=== PATIENT | female | born 1940 | race Hispanic/Latino ===

== ENCOUNTER → 2018-06-05 | Outpatient (CLI) | payer OTHER, MEDICARE ==
[2018-06-05 08:43] LABS: ALBUMIN 3.6 g/dL (3.5-5.0); BILIRUBIN,TOTAL 0.4 mg/dL (0.2-1.0); CREATININE 0.9 mg/dL (0.5-1.5); POTASSIUM 4.7 mmol/L (3.5-5.1); TOTAL PROTEIN, SERUM 7.7 g/dL (6.0-8.3)
== END | disposition home or self-care (01) ==
LOC: LAB 07:54
PROVIDERS: ATTEND Family Medicine
DX: H81.10 Benign paroxysmal vertigo, unspecified ear (principal)
CPT/HCPCS: 36415; 80053

== ENCOUNTER 2018-06-07 16:37 | Emergency (ER) | payer OTHER, MEDICARE ==
[2018-06-07 17:11] LABS: BASOPHILS % (AUTO) 0.5 % (0.0-5.0); EOSINOPHILS % (AUTO) 1.1 % (0.0-8.0); HEMATOCRIT 40.5 % (36-48); LYMPHOCYTES % (AUTO) 17.8 % (21.0-51.0); MEAN CORPUSCULAR HEMOGLOBIN 30.1 pg (27.0-33.0); MEAN CORPUSCULAR HGB CONC 34.3 g/dL (32.0-36.0); MEAN CORPUSCULAR VOLUME 87.9 fL (79-99); MONOCYTES % (AUTO) 7.9 % (3.0-13.0); NEUTROPHILS % (AUTO) 72.7 % (40.0-77.0); NUCLEATED RED BLOOD CELLS 0.1 % (0.0-0.19); PLATELET COUNT (AUTO) 231 K/uL (130-400); RED BLOOD CELL COUNT(AUTO) 4.61 MIL/uL (4.00-5.50); WHITE BLOOD COUNT (AUTO) 13.8 K/uL (4.8-10.8)
[2018-06-07 17:23] LABS: POTASSIUM 4.5 mmol/L (3.5-5.1)
[2018-06-07 17:27] LABS: ALBUMIN 3.7 g/dL (3.5-5.0); BILIRUBIN,TOTAL 0.4 mg/dL (0.2-1.0); TOTAL PROTEIN, SERUM 7.9 g/dL (6.0-8.3)
[2018-06-07] MEDS ORDERED: CYCLOBENZAPRINE HCL 10 MG TABLET ONE (17:48)
[2018-06-07] MEDS ORDERED: TRAMADOL HCL 50 MG TABLET ONE (17:49)
[2018-06-07 17:57] LABS: INR 0.93 (0.85-1.15); PARTIAL THROMBOPLASTIN TIME 26.4 SEC (26.3-35.5); PROTHROMBIN TIME 9.8 SEC (9.6-11.6)
[2018-06-07 18:21] LABS: APPEARANCE,URINE CLEAR (CLEAR); BILIRUBIN,URINE NEGATIVE (NEGATIVE); GLUCOSE, URINE (UA) 100 mg/dL (NEGATIVE); KETONES,URINE NEGATIVE (NEGATIVE); LEUKOCYTE ESTERASE ,URINE NEGATIVE (NEGATIVE); NITRATE,URINE NEGATIVE (NEGATIVE); OCCULT BLOOD,URINE NEGATIVE (NEGATIVE); PROTEIN,URINE NEGATIVE (NEGATIVE); UROBILINOGEN,URINE 0.2 mg/dL (0.2-1.0)
[2018-06-07 18:25] LABS: COLOR,URINE Straw (YELLOW)
[2018-06-07 19:00] LABS: BACTERIA,URINE Rare /HPF (None Seen); RBC,URINE None Seen /HPF (0-1); WBC,URINE 0-1 /HPF (0-1)
[2018-06-07 19:01] LABS: SQUAMOUS EPITHELIAL CELL,UR None Seen /HPF (0-2)
== END 2018-06-07 18:51 | disposition home or self-care (01) ==
LOC: EDH 16:37
DX: M62.838 Other muscle spasm (principal); M54.2 Cervicalgia; R42 Dizziness and giddiness; E11.9 Type 2 diabetes mellitus without complications; I10 Essential (primary) hypertension; E78.5 Hyperlipidemia, unspecified; E07.9 Disorder of thyroid, unspecified; Z90.710 Acquired absence of both cervix and uterus; Z98.890 Other specified postprocedural states
CPT/HCPCS: 36415; 70450; 72125; 80053; 81001; 82550; 84484; 85025; 85610; 85730; 93005

== ENCOUNTER → 2019-06-26 | Outpatient (CLI) | payer OTHER, MEDICARE | END | disposition home or self-care (01) | LOC: RAH 10:23 | PROVIDERS: ATTEND Internal Medicine Gastroenterology | DX: K31.84 Gastroparesis (principal) | CPT/HCPCS: 78264; A9541 ==

== ENCOUNTER 2023-06-28 09:24 | Emergency (ER) | payer OTHER, MEDICARE ==
[~2023-06-28] VITALS: Ht 160 cm; Wt 59.9 kg
[2023-06-28 09:48] LABS: BASOPHILS # (AUTO) 0.04 K/uL (0.00-0.20); BASOPHILS % (AUTO) 0.4 % (0.0-5.0); EOSINOPHILS % (AUTO) 1.1 % (0.0-8.0); HEMATOCRIT 44.8 % (36-48); IMMATURE GRANULOCYTE ABSOLUTE 0.02 K/uL (0-1); LYMPHOCYTES # (AUTO) 3.9 K/uL (1.0-4.8); LYMPHOCYTES % (AUTO) 42.4 % (21.0-51.0); MEAN CORPUSCULAR HEMOGLOBIN 29.5 pg (27.0-33.0); MEAN CORPUSCULAR HGB CONC 34.2 g/dL (32.0-36.0); MEAN CORPUSCULAR VOLUME 86.5 fL (79-99); MONOCYTES # (AUTO) 0.6 K/uL (0.1-1.0); MONOCYTES % (AUTO) 6.5 % (3.0-13.0); NEUTROPHILS # (AUTO) 4.6 K/uL (1.8-7.7); NEUTROPHILS % (AUTO) 49.4 % (40.0-77.0); PLATELET COUNT (AUTO) 330 K/uL (130-400); RED BLOOD CELL COUNT(AUTO) 5.18 MIL/uL (4.00-5.50); RED CELL DISTRIBUTION WIDTH 15.7 % (11.0-15.5); WHITE BLOOD COUNT (AUTO) 9.3 K/uL (4.8-10.8)
[2023-06-28 09:54] LABS: ABG BASE EXCESS 3.1 mmol/L (-2.0-3.0); ABG HCO3 27.2 mmol/L (21.0-28.0); ABG OXYGEN SATURATION 96.1 % (95.0-99.0); ABG PCO2 40 mmHg (32-45); ABG PH 7.453 (7.35-7.450); DEVICE COMMENT RR RA; PO2, ARTERIAL BG 78.3 mmHg (83.0-108.0); VENT MODE, BG RA (ROOM AIR)
[2023-06-28 10:03] LABS: CREATININE 1.2 mg/dL (0.5-1.5); POTASSIUM 3.4 mmol/L (3.5-5.1)
[2023-06-28 10:07] LABS: ALBUMIN 3.5 g/dL (3.5-5.0); BILIRUBIN,TOTAL 0.5 mg/dL (0.2-1.0); TOTAL PROTEIN, SERUM 8.1 g/dL (6.0-8.3)
[2023-06-28] MEDS ORDERED: 0.9% NACL 500ML IV.SOLN 500 ML IV ONE (10:30)
[2023-06-28] MEDS ORDERED: INSULIN HUMULIN R 100 UNIT/ML 3ML IV ONE (10:30)
[2023-06-28 10:51] LABS: APPEARANCE,URINE CLEAR (CLEAR); BILIRUBIN,URINE NEGATIVE (NEGATIVE); COLOR,URINE LIGHT-YELLOW (YELLOW); GLUCOSE, URINE (UA) >=1000 mg/dL (NEGATIVE); KETONES,URINE NEGATIVE (NEGATIVE); LEUKOCYTE ESTERASE ,URINE 25 Leu/uL (NEGATIVE); NITRATE,URINE NEGATIVE (NEGATIVE); OCCULT BLOOD,URINE NEGATIVE (NEGATIVE); PROTEIN,URINE NEGATIVE (NEGATIVE); UROBILINOGEN,URINE 0.2 mg/dL (0.2-1.0)
[2023-06-28 10:52] LABS: ADD UA MICROSCOPIC YES
[2023-06-28 10:55] LABS: MUCUS,URINE RARE LPF (None Seen); RBC,URINE 0-1 /HPF (0-1); SQUAMOUS EPITHELIAL CELL,UR RARE /HPF (0-2); WBC,URINE 0-1 /HPF (0-1)
[2023-06-28] MEDS ORDERED: CEFTRIAXONE 1G VIAL IVPB ONE (12:00)
[2023-06-28 12:17] VITALS: BP 126/69; PULSE 93; RESP 18; O2SAT 99
[2023-06-28] MEDS ORDERED: BENZ200C53 PO (12:37)
== END 2023-06-28 12:46 | disposition home or self-care (01) ==
LOC: EDH 09:24
DX: E11.65 Type 2 diabetes mellitus with hyperglycemia (principal); E03.9 Hypothyroidism, unspecified; E78.00 Pure hypercholesterolemia, unspecified; I10 Essential (primary) hypertension; K21.9 Gastro-esophageal reflux disease without esophagitis; M19.90 Unspecified osteoarthritis, unspecified site; Z90.49 Acquired absence of other specified parts of digestive tract
CPT/HCPCS: 99285; 96374; 70450; 96375; 84484; 80053; 82803; 83690; 85025; 82948; 83605; 82010; 81001; 36415; 93005; 36600; J1815; J7040; J0696

== ENCOUNTER 2023-10-18 12:02 | Emergency (ER) | payer OTHER, MEDICARE ==
[~2023-10-18] VITALS: Ht 167.6 cm; Wt 74.8 kg
[~2023-10-18 12:02] MED LIST: BENZ200C53 PO
[2023-10-18 12:04] VITALS: BP 186/82; PULSE 93; RESP 16
[2023-10-18 13:34] LABS: MEAN CORPUSCULAR HEMOGLOBIN 30.3 pg (27.0-33.0); MEAN CORPUSCULAR HGB CONC 32.8 g/dL (32.0-36.0); MEAN CORPUSCULAR VOLUME 92.3 fL (79-99); RED BLOOD CELL COUNT(AUTO) 4.66 MIL/uL (4.00-5.50); RED CELL DISTRIBUTION WIDTH 13.4 % (11.0-15.5); WHITE BLOOD COUNT (AUTO) 11.4 K/uL (4.8-10.8)
[2023-10-18 13:44] LABS: INR <= 0.93 (0.85-1.15); PROTHROMBIN TIME 10.9 SEC (9.6-11.6)
[2023-10-18 13:45] LABS: PARTIAL THROMBOPLASTIN TIME 26.9 SEC (26.3-35.5)
[2023-10-18 13:47] LABS: CREATININE 0.8 mg/dL (0.5-1.0); POTASSIUM 4.2 mmol/L (3.5-5.1)
[2023-10-18 13:51] LABS: ALBUMIN 3.4 g/dL (3.5-5.0); BILIRUBIN,TOTAL 0.4 mg/dL (0.2-1.0); MAGNESIUM 1.9 mg/dL (1.80-2.40); TOTAL PROTEIN, SERUM 7.4 g/dL (6.0-8.3)
[2023-10-18] MEDS: KETOROLAC 15MG/ML VIAL (15MG/ML) IV ONE (13:59)
== END 2023-10-18 15:20 | disposition home or self-care (01) ==
LOC: EDH 12:02
DX: S00.01XA Abrasion of scalp, initial encounter (principal); I10 Essential (primary) hypertension; E11.9 Type 2 diabetes mellitus without complications; E03.9 Hypothyroidism, unspecified; E78.00 Pure hypercholesterolemia, unspecified; D69.6 Thrombocytopenia, unspecified; K21.9 Gastro-esophageal reflux disease without esophagitis; Z90.710 Acquired absence of both cervix and uterus; Z98.890 Other specified postprocedural states; W18.39XA Other fall on same level, initial encounter; Y93.01 Activity, walking, marching and hiking; Y92.830 Public park as the place of occurrence of the external cause; Y99.8 Other external cause status
CPT/HCPCS: 99285; 70450; 96374; 83735; 84484; 80053; 85027; 85610; 85730; 36415; 72125; 93005; J1885

== ENCOUNTER 2024-12-15 11:26 | Emergency (ER) | payer MEDICARE ==
[~2024-12-15] VITALS: Ht 162.6 cm; Wt 59.0 kg
--- NOTE | 2024-12-15 11:34 | ERN ---
General Chief Complaint: Headache Stated Complaint: VIRAMONTES,HX OF HTN,LT EYE PRESSURE Time Seen by MD: 11:27 History of Present Illness Initial Comments 84-year-old female who presents for left headache and left eye pain for the last three days. Patient reports for the last three days she has been having pain to the left eye and in the orbit area. She reports that her eye is watering. No vision changes. No vomiting. No fevers. No neurologic symptoms. She reports he has never had this before. She denies trauma. She reports medical history of hypertension, she reports that she has not been taking her blood pressure medications. She was brought in by EMS from an adult daycare center with stable vital signs. VAN neg. Allergies: Coded Allergies: No Known Drug Allergies (Unverified Allergy, Unknown, 06/28/23) Home Meds Active Scripts Benzonatate (Benzonatate) 200 Mg Capsule, 200 MG PO TID PRN for COUGH for 14 Days, #42 CAP Prov:ROGERNICK PALMER 06/28/23 Past Medical History Past Medical History: Arthritis, Diabetes-Type II, GERD, High Cholesterol, Hypertension, Hypothyroid Past Surgical History: Hysterectomy, Other, BTL Social History Social History: Negative ROS Dictation CONSTITUTIONAL: No chills, no fever, no weakness, no diaphoresis, no malaise. HEAD/FACE: No signs of trauma. EENT: Left eye pain and headache RESPIRATORY: No cough, no orthopnea, no SOB, no stridor, no wheezing. CARDIOVASCULAR: No chest pain, no edema, no palpitations, no syncope. GASTROINTESTINAL/ABDOMINAL: No abdominal pain, no constipation, no diarrhea, no nausea, no vomiting. GENITOURINARY: No abnormal discharge, no dysuria, no frequent urination, no hematuria. No complaints of pain in the genitals. MUSCULOSKELETAL: No back pain, no gout, no joint pain, no joint swelling, no muscle pain, no muscle stiffness, no neck pain. INTEGUMENTARY: No change in color, no change in hair/nails, no dryness, no lesion, no lumps, no rash. NEUROLOGICAL/PSYCH: No anxiety, not depressed, no emotional problem, no numbn ess, no pre-existing deficit, no history of seizures, no tremors, no weakness. HEMATOLOGIC/LYMPHATIC: Not anemic, no history of blood clots, no apparent bleeding, no bruising, glands not swollen. All Systems Negative, Except as Noted. Physical Exam Physical Exam Dictation VITAL SIGNS: Reviewed. GENERAL APPEARANCE: Alert, oriented x3, no acute distress. HEAD AND FACE: Non-traumatic. EYES: PERRL, pink conjunctivas, eyelid no trauma, anterior chamber clear. EARS: Pinnas intact and no signs of trauma or erythema. Ear canals clear and no discharge. TMs no erythema. NOSE: No discharge, no bleeding. OROPHARYNX: Mouth normal, teeth no caries, tongue pink. Pharynx clear, no erythema. Tonsils no exudates, no abscesses noted. Mucous membrane moist. NECK: Supple, non-tender, no thyromegaly, no masses, no JVD, no bruits. BREAST: Deferred. CHEST: No tenderness, no crepitus, no paradoxical movement, no retractions. LUNGS: Clear, well-ventilated, symmetric, no rales, no wheezing, no rhonchi, no stridor, good breath sounds bilaterally. HEART: Regular rate, regular rhythm, no murmur, no gallops. VASCULAR: No peripheral edema. ABDOMEN: Soft, positive bowel sounds, nondistended, no guarding, nontender, no rebound, no masses no hepatomegaly, no splenomegaly, no Beckwith's sign, no hernias. RECTAL: Deferred. GENITAL: Deferred. NEUROLOGICAL: Normal speech, gross motor function intact, gross sensory function intact. MUSCULOSKELETAL: Neck nontender, full range of motion, back nontender, full range of motion. EXTREMITIES: Nontender, full range of motion. SKIN: Color pink, dry, no turgor, no rash, no lacerations, no abrasions, no contusions. LYMPHATICS: Deferred. Results Laboratory and Microbiology Lab and Micro Result Laboratory Tests Test 12/15/24 11:45 12/15/24 12:07 White Blood Count 12.8 K/uL (4.8-10.8) H Red Blood Count 4.76 MIL/uL (4.00-5.50) Hemoglobin 14.4 g/dL (12.0-16.0) Hematocrit 43.4 % (36-48) Mean Corpuscular Volume 91.2 fL (79-99) Mean Corpuscular Hemoglobin 30.3 pg (27.0-33.0) Mean Corpuscular Hemoglobin Concent 33.2 g/dL (32.0-36.0) Red Cell Distribution Width 13.9 % (11.0-15.5) Platelet Count 254 K/uL (130-400) Mean Platelet Volume 10.2 fL (7.5-10.5) Immature Granulocyte % (Auto) 0.4 % (0-1) Neutrophils (%) (Auto) 62.0 % (40.0-77.0) Lymphocytes (%) (Auto) 30.8 % (21.0-51.0) Monocytes (%) (Auto) 6.3 % (3.0-13.0) Eosinophils (%) (Auto) 0.2 % (0.0-8.0) Basophils (%) (Auto) 0.3 % (0.0-5.0) Neutrophils # (Auto) 7.9 K/uL (1.8-7.7) H Lymphocytes # (Auto) 3.9 K/uL (1.0-4.8) Monocytes # (Auto) 0.8 K/uL (0.1-1.0) Eosinophils # (Auto) 0.03 K/uL (0.00-0.70) Basophils # (Auto) 0.04 K/uL (0.00-0.20) Absolute Immature Granulocyte (auto 0.05 K/uL (0-1) Nucleated Red Blood Cells 0.0 % (0.0-0.19) Sodium Level 143 mmol/L (136-145) Potassium Level 4.3 mmol/L (3.5-5.1) Chloride Level 106 mmol/L (101-111) Carbon Dioxide Level 29 mmol/L (21-32) Blood Urea Nitrogen 18 mg/dL (7-18) Creatinine 0.7 mg/dL (0.5-1.0) Glomerular Filtration Rate Calc 85 mL/min (>90) Random Glucose 151 mg/dL (70-105) H Total Calcium 9.2 mg/dL (8.5-10.1) Magnesium Level 2.20 mg/dL (1.80-2.40) Total Creatine Kinase 50 U/L (21-232) Troponin I High Sensitivity 8.7 ng/L (4-50) B-Type Natriuretic Peptide 49 pg/mL (0-100) Urine Color COLORLESS (YELLOW) Urine Appearance CLEAR (CLEAR) Urine pH 6.5 (5.0-8.0) Urine Specific Duarte 1.005 (1.001-1.031) Urine Protein NEGATIVE mg/dL (NEGATIVE) Urine Glucose (UA) >=1000 mg/dL (NEGATIVE) H Urine Ketones NEGATIVE mg/dL (NEGATIVE) Urine Occult Blood NEGATIVE (NEGATIVE) Urine Nitrate NEGATIVE (NEGATIVE) Urine Bilirubin NEGATIVE mg/dL (NEGATIVE) Urine Urobilinogen 0.2 mg/dL (0.2-1.0) Urine Leukocyte Esterase 25 Sai/uL (NEGATIVE) H Urine RBC 0-1 /HPF (0-1) Urine WBC 2-5 /HPF (0-1) H Urine Squamous Epithelial Cells RARE /HPF (0-2) Urine Bacteria None /HPF (None Seen) MDM CC: Left-sided eye pain and headache Historian: Patient 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 Troponin BNP CK normal. UA shows glucose otherwise normal. CT head is unremarkable Treatment in ED: IV LR, Toradol Re-evaluation: Pain improved. No neurologic deficits. No signs of life- threatening pathology. We will DC. ED Course Orders Procedure Category Date Status Time Lactated Ringers PHA 12/15/24 Complete 1000ml (Lactated 11:30 Cardiac Panel LAB 12/15/24 Complete 11:27 Cbc With Differential LAB 12/15/24 Complete 11:27 Basic Metabolic Panel LAB 12/15/24 Complete 11:27 B-Type Natriuretic LAB 12/15/24 Complete Peptide 11:27 Magnesium LAB 12/15/24 Complete 11:27 Ketorolac PHA 12/15/24 Complete Tromethamine 15mg/Ml 11:30 Ct Head/Brain W/O CT 12/15/24 Resulted Contrast 11:27 Urinalysis Profile LAB 12/15/24 Complete 13:05 Current Medications Medications (Trade) Dose Ordered Sig/Elliot Route PRN Reason Start Time Stop Time Status Last Admin Dose Admin Ketorolac Tromethamine (toRADol) 15 mg ONCE ONCE IV 12/15/24 11:30 12/15/24 11:31 DC 12/15/24 12:34 Lactated Ringer's 1,000 ml @ 0 mls/hr ONCE ONCE IV 12/15/24 11:30 12/15/24 11:31 DC 12/15/24 12:34 Vital Signs Date Time Temp Pulse Resp B/P (MAP) Pulse Ox O2 Delivery O2 Flow Rate FiO2 12/15/24 11:50 85 17 151/80 96 Room Air* 0 21 12/15/24 11:29 97.7 86 17 160/80 97 Room Air DX & DISP Disposition: Discharge Departure Impression: Primary Impression: Left-sided headache Additional Impression: Pain, eye, left Condition: Stable Scripts Polymyxin B Sulfate/Tmp (Polytrim Ophth Soln) 10,000 Unit-1 Mg/Ml Opsol 1 DROP OP TID for 7 Days, #10 ML 0 Refills Prov: TOÑO SORTO DO 12/15/24 Additional Instructions: There are no dangerous findings on your workup here today. Your vital signs has been stable. Your blood work is normal. The CT scan of your head is normal. I have prescribed eyedrops. Use as prescribed. 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 Referrals: MARKO DAVIES DO (PCP) TOÑO SORTO DO December 15, 2024 11:34
--- NOTE | 2024-12-15 11:36 | NUR ---
PT JUST NOW PLACED BY EMS INTO MY ED BED 11
[2024-12-15 11:56] LABS: BASOPHILS # (AUTO) 0.04 K/uL (0.00-0.20); BASOPHILS % (AUTO) 0.3 % (0.0-5.0); EOSINOPHILS # (AUTO) 0.03 K/uL (0.00-0.70); EOSINOPHILS % (AUTO) 0.2 % (0.0-8.0); HEMATOCRIT 43.4 % (36-48); IMMATURE GRANULOCYTE ABSOLUTE 0.05 K/uL (0-1); LYMPHOCYTES # (AUTO) 3.9 K/uL (1.0-4.8); LYMPHOCYTES % (AUTO) 30.8 % (21.0-51.0); MEAN CORPUSCULAR HEMOGLOBIN 30.3 pg (27.0-33.0); MEAN CORPUSCULAR HGB CONC 33.2 g/dL (32.0-36.0); MEAN CORPUSCULAR VOLUME 91.2 fL (79-99); MONOCYTES # (AUTO) 0.8 K/uL (0.1-1.0); MONOCYTES % (AUTO) 6.3 % (3.0-13.0); NEUTROPHILS # (AUTO) 7.9 K/uL (1.8-7.7); PLATELET COUNT (AUTO) 254 K/uL (130-400); RED BLOOD CELL COUNT(AUTO) 4.76 MIL/uL (4.00-5.50); RED CELL DISTRIBUTION WIDTH 13.9 % (11.0-15.5); WHITE BLOOD COUNT (AUTO) 12.8 K/uL (4.8-10.8)
[2024-12-15 12:08] LABS: CREATININE 0.7 mg/dL (0.5-1.0); POTASSIUM 4.3 mmol/L (3.5-5.1)
[2024-12-15 12:16] LABS: MAGNESIUM 2.2 mg/dL (1.80-2.40)
[2024-12-15 12:19] LABS: B-TYPE NATRIURETIC PEPTIDE 49 pg/mL (0-100)
[2024-12-15] MEDS: ketOROlac 15MG/ML VIAL (15MG/ML) IV ONE (12:34)
[2024-12-15] MEDS: LACTATED RINGERS 1000ML 1,000 ML IV ONE (12:34)
--- NOTE | 2024-12-15 12:56 | NUR ---
PT CURRENTLY EN ROUTE TO CT SCAN
--- NOTE | 2024-12-15 13:15 | HMCIMG ---
Exam Type: CT HEAD/BRAIN W/O CONTRAST Clinical Information: headache Comparison: None CT Dose Index (CTDI): 57.33 mGy Dose Length Product (DLP): 956.79 total mGy-cm Findings: The examination shows atrophy. There is low attenuation throughout the periventricular white matter locations, consistent with chronic small vessel ischemic changes. No acute intra- or extra-axial fluid collections are seen. There is no evidence of acute or chronic hemorrhage. There is no mass effect or shift of midline structures. There are no areas to suggest acute infarct. The skull windows show no significant abnormalities. IMPRESSION: 1. ATROPHY AND CHRONIC SMALL VESSEL ISCHEMIC CHANGES. This study was performed using dose reduction techniques to include automated exposure control and/or adjustment of the mA and/or kV according to patient size.
[2024-12-15 13:55] LABS: APPEARANCE,URINE CLEAR (CLEAR); BILIRUBIN,URINE NEGATIVE (NEGATIVE); COLOR,URINE COLORLESS (YELLOW); GLUCOSE, URINE (UA) >=1000 mg/dL (NEGATIVE); KETONES,URINE NEGATIVE (NEGATIVE); LEUKOCYTE ESTERASE ,URINE 25 Leu/uL (NEGATIVE); NITRATE,URINE NEGATIVE (NEGATIVE); OCCULT BLOOD,URINE NEGATIVE (NEGATIVE); PH,URINE 6.5 (5.0-8.0); PROTEIN,URINE NEGATIVE (NEGATIVE); UROBILINOGEN,URINE 0.2 mg/dL (0.2-1.0)
[2024-12-15 14:01] LABS: ADD UA MICROSCOPIC YES
[2024-12-15 14:03] LABS: RBC,URINE 0-1 /HPF (0-1); SQUAMOUS EPITHELIAL CELL,UR RARE /HPF (0-2)
--- NOTE | 2024-12-15 14:38 | NUR ---
ALL RESULTS HAVE RETURNED. PENDING DISPO
[2024-12-15] MEDS ORDERED: POLYOS OP (15:03)
[2024-12-15 15:17] VITALS: BP 159/80; PULSE 74; RESP 18; TEMP 97.8; O2SAT 97
--- NOTE | 2024-12-15 15:26 | NUR ---
PT TO TAKE OTC MEDS FOR ANALGESIA
== END 2024-12-15 15:28 | disposition home or self-care (01) ==
LOC: EDH 11:26
DX: R51.9 Headache, unspecified (principal); H57.12 Ocular pain, left eye; M19.90 Unspecified osteoarthritis, unspecified site; E03.9 Hypothyroidism, unspecified; E11.9 Type 2 diabetes mellitus without complications; E78.00 Pure hypercholesterolemia, unspecified; I10 Essential (primary) hypertension; Z90.710 Acquired absence of both cervix and uterus; Z91.148 Patient's other noncompliance with medication regimen for other reason; Z95.1 Presence of aortocoronary bypass graft
CPT/HCPCS: 99285; 96374; 96361; 70450; 82550; 83735; 84484; 80048; 83880; 85025; 81001; 36415; J1885; J7120